=== PATIENT | female | born 1970 | race African-American/Black ===

== ENCOUNTER 2023-12-30 10:39 | Outpatient (AMB) | payer OTHER, SELFPAY ==
--- NOTE | 2023-12-30 10:42 | A.OFFVIS_ITS ---
Vital Signs 12/30/23 10:55 Height 5 ft 5 in Weight 303 lb 9.224 oz BMI 50.5 BP 130/64 Blood Pressure Location Rt brachial Position Sitting Pulse 91 Pulse Source Pulse Oximeter Pulse Oximetry (%) 94 Oxygen Delivery Method Room Air Intake Visit Reasons: Psoriasis with bilateral knee pain/CM Intake Note: Patient presents for Psoriassis. Allergies codeine [CODEINE] Adverse Reaction (Mild, Verified 12/30/23 10:48) SHAKY Medication List - Last Reconciled 12/30/23 by Stefanie Kaminski MD albuterol sulfate 90 mcg/actuation (Ventolin HFA) inhalation bacitracin topical budesonide-formoterol 160-4.5 mcg/actuation (Symbicort) 2 puffs inhalation BID triamcinolone acetonide 0.1% topical white petrolatum topical HPI Comments Details: This is a 53-year-old female who for evaluation of knee pain. Patient states that she was diagnosed with psoriasis a few years ago. She states that she was diagnosed by her PCP. She was then seen by a blacking machine operator. She had a skin biopsy. She was told that she has eczema but there is still some suspicion of psoriasis. She has dark thick rashes on extensor aspect of her arms and legs. She stated that she was recently started on triamcinolone cream with some improvement. She states that she has had bilateral knee pain, worse on the left over the last year with intermittent swelling. She could hardly move her left knee. She started doing PT recently and she states that the range of motion of her knees is improving. She is unaware of any family history of an autoimmune rheumatic disease [facility] Social History (Updated 12/30/23 @ 10:54 by Yessica Bianchi [facility]) Household Members: None Housing: Apartment Alcohol intake: never Patient Tobacco Use Status: Never used Tobacco Review of Systems [facility] [place] Reports arthralgias, Reports joint swelling, Reports limited range of motion and Reports stiffness Skin/Breast Reports pruritus, Reports lesions and Reports rash Physical Exam Vital Signs: Last Vital Signs Pulse 91 12/30/23 10:55 BP 130/64 12/30/23 10:55 Pulse Ox 94 12/30/23 10:55 Oxygen Delivery Method Room Air 12/30/23 10:55 BMI result Body Mass Index 50.5 Const General: cooperative, healthy appearing and comfortable Nutritional Appearance: obese morbidly obese Orientation/consciousness: patient oriented x3 Limitations: no limitations HEENT Head: Yes normocephalic and Yes atraumatic Mouth: moist mucous membranes Resp Effort & Inspection: normal respiratory effort and able to speak in complete sentences Cardio Rate: regular rate Skin Other: Diffuse thick dark rashes covering the extensor aspect of her arms and knees Neuro General: patient oriented x3 Extrem Other: No swollen joints noted Normal nailfold capillaroscopy Normal range of motion of hands, wrists, elbows and shoulders without pain Assessment & Plan Assessment & Plan (1) Bilateral primary osteoarthritis of knee: Code(s): M17.0 - Bilateral primary osteoarthritis of knee Category: Medical Plan: This is a 52-year-old female with questionable history of psoriasis versus eczema who presents for evaluation of left knee pain. Clinical picture rather consistent with knee osteoarthritis. She started PT and is improving. She has an appointment with the blacking machine operator in a few months to evaluate her skin rash. I do not see any signs suggestive of an autoimmune rheumatic disease upon my evaluation today. Follow-up with PCP Plan I spent 30 minutes reviewing patient's chart, evaluating patient, ordering diagnostic workup, counseling patient and documenting in the chart Coding Level of Care Code New Pt Level 3 (83678) Diagnoses Bilateral primary osteoarthritis of knee M17.0
[2023-12-30 10:55] VITALS: BP 130/64; PULSE 91; O2SAT 94; BMI 50.5
== END 2023-12-30 11:21 | disposition home or self-care (01) ==
PROVIDERS: PCP Internal Medicine; Visit Provider Student in an Organized Health Care Education/Training Program
DX: M17.0 Bilateral primary osteoarthritis of knee (principal)
CPT/HCPCS: 99203

== ENCOUNTER → 2023-12-30 10:39 | Outpatient (BNVA) | payer OTHER, SELFPAY | PROVIDERS: PCP Internal Medicine; Visit Provider Student in an Organized Health Care Education/Training Program | DX: M17.0 Bilateral primary osteoarthritis of knee (principal) | CPT/HCPCS: 99202 ==